=== PATIENT | male | born 1980 | race Two or more races ===

== ENCOUNTER 2020-03-17 09:38 | Emergency (ER) | payer OTHER ==
[~2020-03-17] VITALS: Ht 175.3 cm; Wt 162.8 kg
--- NOTE | 2020-03-17 09:40 | NUR ---
PT [facility] 80 AND [employer] FROM [facility] C/O CHEST PAIN PRESSURE LIKE NON RADIATING. PT IS AAOX4, NOT IN RESPIRATORY DISTRESS, V/S STABLE, KEPT RESTED AND COMFORTABLE. WILL CONTINUE TO MONITOR.
--- NOTE | 2020-03-17 09:42 | NUR ---
SEEN AND EXAMINED BY .
--- NOTE | 2020-03-17 09:45 | NUR ---
TECH AT BEDSIDE FOR EKG.
[2020-03-17 09:52] VITALS: BP 129/88
--- NOTE | 2020-03-17 09:52 | NUR ---
Patient discharged in custody in stable condition. Written and verbal after care instructions given. Patient verbalizes understanding of instruction.
== END 2020-03-17 09:52 ==
LOC: ER 09:39
DX: Z02.89 Encounter for other administrative examinations (principal); R07.89 Other chest pain